=== PATIENT | female | born 1940 | race Two or more races ===

== ENCOUNTER 2023-08-24 10:24 | Inpatient (IN) | payer OTHER ==
[~2023-08-24] VITALS: Ht 165.1 cm; Wt 169.6 kg
[2023-08-24] MEDS ORDERED: PROVIGIL200 MG PO (10:35)
[2023-08-24] MEDS ORDERED: ADULT LOW DOSE81 M1 PO (10:35)
[2023-08-24] MEDS ORDERED: SYNTHROID75 MCG PO (10:35)
[2023-08-24] MEDS ORDERED: PROTONIX20 MG PO (10:36)
[2023-08-24] MEDS ORDERED: LIORESAL I2000 MCG/1 IT (10:36)
[2023-08-24] MEDS ORDERED: COZAAR25 MG PO (10:37)
[2023-08-24] MEDS ORDERED: NAMENDA10 MG PO (10:37)
[2023-08-24] MEDS ORDERED: RAZADYNE ER16 MG PO (10:37)
[2023-08-24] MEDS ORDERED: FEOSOL325 MG PO (10:37)
[2023-08-24] MEDS ORDERED: CRESTOR5 MG PO (10:38)
[2023-08-24] MEDS ORDERED: FOLIC ACID0.8 M1 (10:38)
[2023-08-24] MEDS ORDERED: VITAMIN D310 MCG/1 M (10:40)
[2023-08-24] MEDS ORDERED: POLYETHYLENE GLYCOL 3350 17 GM BLIST.PACK PO SCH (15:52)
[2023-08-24] MEDS ORDERED: BISACODYL 5 MG TABLET.EC PO SCH (15:52)
[2023-08-24] MEDS ORDERED: 0.9 % SODIUM CHLORIDE 1,000 ML IV SCH (16:00)
[2023-08-24 16:58] LABS: HEMATOCRIT 39.3 % (36.0-45.00); HEMOGLOBIN 13.1 g/dL (12.0-15.00); MEAN CELL VOLUME 93.8 fL (80.00-100.00); MEAN CORPUSCULAR HEMOGLOBIN 31.2 pg (27.00-32.0); MEAN CORPUSCULAR HGB CONC 33.3 g/dl (32.0-36.0); PLATELET COUNT 234 K/uL (150-450); RED BLOOD COUNT 4.19 M/uL (4.00-6.00); RED CELL DISTRIBUTION WIDTH 14.4 % (11.5-14.5)
[2023-08-24 17:18] LABS: INR 0.98; PROTHROMBIN TIME 10.3 SECONDS (9.0-11.5)
[2023-08-24 17:22] LABS: ALBUMIN 3.1 gm/dL (3.4-5.0); BILIRUBIN TOTAL 0.31 mg/dL (0.3-1.2); CALCIUM 9.1 mg/dL (8.5-10.1); CREATININE SERUM 0.55 mg/dL (0.55-1.02); GFR 105.82; GLOBULINA 2.8 G/DL (2.4-3.5); POTASSIUM 4.17 mEq/L (3.5-5.1); TOTAL PROTEIN 5.9 gm/dL (6.4-8.2)
[2023-08-24 19:09] LABS: URINE APPEARANCE Turbid; URINE BILIRRUBIN Negative (NEGATIVE); URINE BLOOD Small; URINE COLOR Yellow; URINE GLUCOSE Negative (NEGATIVE); URINE LEUKOCYTE Large; URINE NITRATE Positive; URINE PROTEIN 30 (NEGATIVE); URINE UROBILINOGEN 0.2 E.U./dl
[2023-08-24 19:13] LABS: URINE EPITHELIAL CELLS 7.1 uL (0.0-38.8); URINE RBC 35.9 uL (0.0-20.8)
[2023-08-24 19:14] LABS: URINE BACTERIA > 9821.5 uL (0.0-1933); URINE WBC > 5548.3 uL (0.0-23.2)
[2023-08-24] MEDS ORDERED: ENALAPRILAT DIHYDRATE 1.25 MG/ML VIAL IV PRN (19:45)
[2023-08-24] MEDS ORDERED: POLYETHYLENE GLYCOL 3350 238 GM POWDER PO ONE (20:00)
[2023-08-25] MEDS ORDERED: SILVER SULFADIAZINE 50 GM,ZINC OXIDE 30 GM,NYSTATIN 15 GM TOP SCH (09:01)
[2023-08-25] MEDS ORDERED: CEFTRIAXONE SODIUM 2,000 MG VIAL IV STA (13:53)
[2023-08-25] MEDS ORDERED: LEVALBUTEROL HCL 0.63 MG/3 ML SOLUTION IH STA (14:07)
[2023-08-25 14:57] LABS: ABG PH 7.418 (7.35-7.45); ABG PO2 78.5 mmHg (80-100); ABG pCO2 36.9 mmHg (35-45); BASE EXCESS -0.8 mmol/l; BICARBONATE 23.3 mmol/l (23-25); SaO2 95.7 %; Tco2 24.4 mmol/l
[2023-08-25 14:58] LABS: allen test SATISFACTORY; o2 21 %; puncture site RADIAL RIGHT
[2023-08-25] MEDS ORDERED: LEVALBUTEROL HCL 0.63 MG/3 ML SOLUTION IH SCH ×2 (17:00→18:55)
[2023-08-25] MEDS ORDERED: MORPHINE SULFATE 4 MG/ML CARTRIDGE IV PRN (18:00)
[2023-08-25] MEDS ORDERED: RINGERS SOLUTION,LACTATED 1,000 ML IV SCH (18:00)
[2023-08-25] MEDS ORDERED: DEXTROSE 50 % IN WATER 0.5 G/ML DISP.SYRIN IV PRN (18:00)
[2023-08-25] MEDS ORDERED: ONDANSETRON HCL 2 MG/ML VIAL IV PRN (18:00)
[2023-08-25] MEDS ORDERED: SUGAMMADEX SODIUM 200 MG/2 ML VIAL IV ONE (18:05)
[2023-08-25] MEDS ORDERED: BETHANECHOL CHLORIDE 25 MG TABLET PO SCH (18:53)
[2023-08-25] MEDS ORDERED: ACETAMINOPHEN 500 MG GEL..CAP PO SCH (20:00)
[2023-08-25] MEDS ORDERED: FAMOTIDINE/PF 20 MG/2 ML VIAL IV PUSH SCH (21:00)
[2023-08-25] MEDS ORDERED: CELECOXIB 200 MG CAPSULE PO SCH (21:00)
[2023-08-25] MEDS ORDERED: BUDESONIDE 0.25 MG/2 ML AMPUL.NEB IH SCH (21:00)
[2023-08-25] MEDS ORDERED: IPRATROPIUM BROMIDE 0.5 MG/2.5 ML AMPUL.NEB IH SCH (21:00)
[2023-08-25] MEDS ORDERED: TAMSULOSIN HCL 0.4 MG CAP PO SCH (21:00)
[2023-08-25] MEDS ORDERED: BACLOFEN 10 MG TABLET PO SCH (21:00)
[2023-08-25] MEDS ORDERED: MONTELUKAST SODIUM 10 MG TABLET PO SCH (21:00)
[2023-08-25] MEDS ORDERED: MEMANTINE HCL 10 MG TABLET PO SCH (21:00)
[2023-08-25 21:11] LABS: HEMATOCRIT 37.7 % (36.0-45.00); HEMOGLOBIN 12.3 g/dL (12.0-15.00); MEAN CELL VOLUME 92.7 fL (80.00-100.00); MEAN CORPUSCULAR HEMOGLOBIN 30.2 pg (27.00-32.0); MEAN CORPUSCULAR HGB CONC 32.6 g/dl (32.0-36.0); PLATELET COUNT 237 K/uL (150-450); RED BLOOD COUNT 4.07 M/uL (4.00-6.00); RED CELL DISTRIBUTION WIDTH 14.6 % (11.5-14.5)
[2023-08-25 21:29] LABS: CALCIUM 8.6 mg/dL (8.5-10.1); CREATININE SERUM 0.56 mg/dL (0.55-1.02); GFR 103.64; MAGNESIUM 1.7 mg/dL (1.8-2.4); PHOSPHOROUS 2.9 mg/dL (2.5-4.9); POTASSIUM 3.91 mEq/L (3.5-5.1)
[2023-08-26] MEDS ORDERED: GABAPENTIN 300 MG CAPSULE PO SCH (01:00)
[2023-08-26] MEDS ORDERED: PATIENTS OWN MEDICATION (MEDICAMENTO EN PISO) PO SCH ×5 (06:00→17:00)
[2023-08-26] MEDS ORDERED: PIPERACILLIN/TAZOBACTAM SODIUM 3.375 GM in 0.9 % SODIUM CHLORIDE 100 ML IV SCH (06:00)
[2023-08-26] MEDS ORDERED: SUCRALFATE 1 G TABLET PO SCH (07:00)
[2023-08-26] MEDS ORDERED: PIPERACILLIN/TAZOBACTAM SODIUM 3.375 GM VIAL IV ONE (07:26)
[2023-08-26 07:39] LABS: HEMATOCRIT 36.1 % (36.0-45.00); HEMOGLOBIN 11.9 g/dL (12.0-15.00); MEAN CELL VOLUME 92.9 fL (80.00-100.00); MEAN CORPUSCULAR HEMOGLOBIN 30.7 pg (27.00-32.0); MEAN CORPUSCULAR HGB CONC 33.1 g/dl (32.0-36.0); PLATELET COUNT 216 K/uL (150-450); RED BLOOD COUNT 3.89 M/uL (4.00-6.00); RED CELL DISTRIBUTION WIDTH 14.3 % (11.5-14.5)
[2023-08-26 08:19] LABS: ALBUMIN 2.7 gm/dL (3.4-5.0); CALCIUM 8.4 mg/dL (8.5-10.1); CREATININE SERUM 0.61 mg/dL (0.55-1.02); GFR 93.9; MAGNESIUM 1.9 mg/dL (1.8-2.4); PHOSPHOROUS 2.6 mg/dL (2.5-4.9); POTASSIUM 3.68 mEq/L (3.5-5.1)
[2023-08-26] MEDS ORDERED: BUDESONIDE 0.5 MG/2 ML AMPUL.NEB IH SCH (09:00)
[2023-08-26] MEDS ORDERED: LOSARTAN POTASSIUM 25 MG TABLET PO SCH (09:00)
[2023-08-26] MEDS ORDERED: HYOSCYAMINE SULFATE 0.125 MG TAB.SUBL SL SCH (09:00)
[2023-08-26] MEDS ORDERED: LEVALBUTEROL HCL 0.63 MG/3 ML SOLUTION IH ONE (09:18)
[2023-08-26] MEDS ORDERED: SUGAMMADEX SODIUM 200 MG/2 ML VIAL IV ONE (13:00)
[2023-08-26] MEDS ORDERED: EMOLLIENT COMBINATION NO.92 2.5 OZ BOTTLE TOP SCH (13:45)
[2023-08-26] MEDS ORDERED: POLYETHYLENE GLYCOL 3350 17 GM BLIST.PACK PO SCH (17:00)
[2023-08-26] MEDS ORDERED: ENOXAPARIN SODIUM 40 MG/0.4 ML SYRINGE SUBCUTANEO SCH (17:00)
[2023-08-27 08:15] LABS: HEMATOCRIT 32.3 % (36.0-45.00); HEMOGLOBIN 10.6 g/dL (12.0-15.00); MEAN CELL VOLUME 93.9 fL (80.00-100.00); PLATELET COUNT 175 K/uL (150-450); RED BLOOD COUNT 3.44 M/uL (4.00-6.00); RED CELL DISTRIBUTION WIDTH 14.5 % (11.5-14.5)
[2023-08-27] MEDS ORDERED: ENOXAPARIN SODIUM 40 MG/0.4 ML SYRINGE SUBCUTANEO SCH (09:00)
[2023-08-27 09:04] LABS: CALCIUM 8.2 mg/dL (8.5-10.1); CREATININE SERUM 0.7 mg/dL (0.55-1.02); GFR 80.11; MAGNESIUM 2.2 mg/dL (1.8-2.4); PHOSPHOROUS 2.7 mg/dL (2.5-4.9); POTASSIUM 3.61 mEq/L (3.5-5.1)
[2023-08-27] MEDS ORDERED: CLONIDINE HCL 0.1 MG TABLET PO STA (12:02)
[2023-08-27] MEDS ORDERED: SOD FERRIC GLUC COMPLX/SUCROSE 62.5 MG in 0.9 % SODIUM CHLORIDE 50 ML IV SCH (12:10)
[2023-08-27] MEDS ORDERED: Cyanocobalamin/Mecobalamin 1 TAB.SL SL SCH (12:10)
[2023-08-28 12:34] LABS: ABG PH 7.364 (7.35-7.45); ABG PO2 60.1 mmHg (80-100); ABG pCO2 36.5 mmHg (35-45); BASE EXCESS -4.3 mmol/l; BICARBONATE 20.4 mmol/l (23-25); SaO2 89.3 %; Tco2 21.5 mmol/l
[2023-08-28 12:35] LABS: allen test SATISFACTORY; o2 21 %; puncture site RADIAL RIGHT
[2023-08-29 09:21] LABS: HEMATOCRIT 35.7 % (36.0-45.00); HEMOGLOBIN 11.5 g/dL (12.0-15.00); MEAN CELL VOLUME 92.8 fL (80.00-100.00); MEAN CORPUSCULAR HEMOGLOBIN 29.9 pg (27.00-32.0); MEAN CORPUSCULAR HGB CONC 32.2 g/dl (32.0-36.0); PLATELET COUNT 195 K/uL (150-450); RED BLOOD COUNT 3.85 M/uL (4.00-6.00); RED CELL DISTRIBUTION WIDTH 14.7 % (11.5-14.5)
[2023-08-29 09:23] LABS: CALCIUM 8.6 mg/dL (8.5-10.1); CREATININE SERUM 0.75 mg/dL (0.55-1.02); GFR 73.98; MAGNESIUM 2.1 mg/dL (1.8-2.4); PHOSPHOROUS 2.1 mg/dL (2.5-4.9)
[2023-08-29 09:28] LABS: POTASSIUM 3.01 mEq/L (3.5-5.1)
[2023-08-29] MEDS ORDERED: VANCOMYCIN HCL 1,000 MG VIAL IV SCH (10:44)
[2023-08-29] MEDS ORDERED: POTASSIUM PHOS,M-BASIC-D-BASIC 3 MM/ML VIAL IV NR (10:45)
[2023-08-29] MEDS ORDERED: POTASSIUM CHLORIDE 20MEQ/100ML H2O PB IV ONE (10:51)
[2023-08-29] MEDS ORDERED: MEROPENEM 1,000 MG VIAL IV SCH (13:00)
[2023-08-29 16:42] LABS: HEMATOCRIT 38.9 % (36.0-45.00); HEMOGLOBIN 12.7 g/dL (12.0-15.00); MEAN CORPUSCULAR HGB CONC 32.6 g/dl (32.0-36.0); PLATELET COUNT 225 K/uL (150-450); RED BLOOD COUNT 4.22 M/uL (4.00-6.00); RED CELL DISTRIBUTION WIDTH 14.9 % (11.5-14.5)
[2023-08-29] MEDS ORDERED: METRONIDAZOLE/SODIUM CHLORIDE 100 ML IV SCH (17:00)
[2023-08-29 17:05] LABS: CALCIUM 8.8 mg/dL (8.5-10.1); CREATININE SERUM 0.63 mg/dL (0.55-1.02); GFR 90.47; POTASSIUM 3.31 mEq/L (3.5-5.1)
[2023-08-29 17:41] LABS: ABG PH 7.366 (7.35-7.45); ABG PO2 83.9 mmHg (80-100); ABG pCO2 28.2 mmHg (35-45); BASE EXCESS -7.9 mmol/l; BICARBONATE 15.8 mmol/l (23-25); SaO2 95.5 %; Tco2 16.7 mmol/l
[2023-08-29 17:42] LABS: allen test SATISFACTORY; o2 100 %; puncture site RADIAL RIGHT
[2023-08-29 17:44] LABS: URINE APPEARANCE Cloudy; URINE BILIRRUBIN Negative (NEGATIVE); URINE BLOOD Negative; URINE COLOR Dark Yellow; URINE GLUCOSE Negative (NEGATIVE); URINE LEUKOCYTE Negative; URINE NITRATE Negative
[2023-08-29 17:48] LABS: URINE BACTERIA 41.5 uL (0.0-1933); URINE EPITHELIAL CELLS 67.2 uL (0.0-38.8); URINE RBC 31.7 uL (0.0-20.8); URINE WBC 66.7 uL (0.0-23.2)
[2023-08-29 18:37] LABS: MAGNESIUM 2.2 mg/dL (1.8-2.4); PHOSPHOROUS 3.5 mg/dL (2.5-4.9)
[2023-08-29] MEDS ORDERED: LINEZOLID IN DEXTROSE 5% 300 ML IV SCH (18:57)
[2023-08-29 19:51] LABS: URINE PROTEIN 100 (NEGATIVE)
[2023-08-29 21:39] LABS: CKMB 3.8 NG/ML (0.5-3.6)
[2023-08-30 07:36] LABS: CKMB 3.6 NG/ML (0.5-3.6)
[2023-08-30 07:38] LABS: HEMATOCRIT 31.9 % (36.0-45.00); HEMOGLOBIN 10.6 g/dL (12.0-15.00); MEAN CELL VOLUME 93.2 fL (80.00-100.00); MEAN CORPUSCULAR HEMOGLOBIN 31.1 pg (27.00-32.0); MEAN CORPUSCULAR HGB CONC 33.4 g/dl (32.0-36.0); PLATELET COUNT 189 K/uL (150-450); RED BLOOD COUNT 3.43 M/uL (4.00-6.00); RED CELL DISTRIBUTION WIDTH 14.7 % (11.5-14.5)
[2023-08-30 07:44] LABS: CALCIUM 8.8 mg/dL (8.5-10.1); CREATININE SERUM 0.51 mg/dL (0.55-1.02); GFR 115.45; POTASSIUM 3.32 mEq/L (3.5-5.1)
[2023-08-30 07:54] LABS: PHOSPHOROUS 1.9 mg/dL (2.5-4.9)
[2023-08-30 08:55] LABS: ABG PH 7.388 (7.35-7.45); ABG PO2 67.9 mmHg (80-100); ABG pCO2 29.6 mmHg (35-45)
[2023-08-30 08:56] LABS: BASE EXCESS -6.1 mmol/l; BICARBONATE 17.4 mmol/l (23-25); SaO2 92.7 %; Tco2 18.3 mmol/l; allen test SATISFACTORY; o2 100 %; puncture site RADIAL RIGHT
[2023-08-30] MEDS ORDERED: POTASSIUM CHLORIDE 20MEQ/100ML H2O PB IV ONE (09:00)
[2023-08-30] MEDS ORDERED: POTASSIUM PHOS,M-BASIC-D-BASIC 3 MM/ML VIAL IV NR (09:00)
[2023-08-30] MEDS ORDERED: cloNIDine 0.2 MG/24 H PATCH.TDWK TD SCH (09:38)
[2023-08-30] MEDS ORDERED: FUROsemide 20 MG/2 ML VIAL IV STA (10:25)
[2023-08-30] MEDS ORDERED: NITROGLYCERIN IN 5 % DEXTROSE 250 ML IV SCH (11:45)
[2023-08-30] MEDS ORDERED: AA 4.25%/CAL/LYTES/DEXT 5% 1,000 ML PERIFERAL SCH (17:00)
[2023-08-30] MEDS ORDERED: FUROsemide 20 MG/2 ML VIAL IV SCH (17:00)
[2023-08-31 06:31] LABS: HEMATOCRIT 35.6 % (36.0-45.00); HEMOGLOBIN 12.1 g/dL (12.0-15.00); MEAN CELL VOLUME 89.2 fL (80.00-100.00); MEAN CORPUSCULAR HEMOGLOBIN 30.2 pg (27.00-32.0); MEAN CORPUSCULAR HGB CONC 33.8 g/dl (32.0-36.0); PLATELET COUNT 223 K/uL (150-450); RED BLOOD COUNT 3.99 M/uL (4.00-6.00); RED CELL DISTRIBUTION WIDTH 15.6 % (11.5-14.5)
[2023-08-31 06:39] LABS: CALCIUM 8.6 mg/dL (8.5-10.1); CREATININE SERUM 1.15 mg/dL (0.55-1.02); GFR 45.17; MAGNESIUM 2.3 mg/dL (1.8-2.4); PHOSPHOROUS 2.8 mg/dL (2.5-4.9); POTASSIUM 5.22 mEq/L (3.5-5.1)
[2023-08-31 08:21] LABS: ABG PH 7.448 (7.35-7.45); ABG pCO2 35.3 mmHg (35-45)
[2023-08-31 08:22] LABS: ABG PO2 54.1 mmHg (80-100); BASE EXCESS 0.4 mmol/l; BICARBONATE 23.9 mmol/l (23-25); SaO2 89.3 %; allen test SATISFACTORY; o2 100 %; puncture site RADIAL LEFT
[2023-08-31] MEDS ORDERED: hydrALAZINE HCL 25 MG TABLET PO SCH (09:00)
[2023-08-31] MEDS ORDERED: FLUCONAZOLE IN NACL,ISO-OSM 400 MG/200 ML PIGGYBAG IV STA (10:56)
[2023-08-31] MEDS ORDERED: PHENYLEPHRINE HCL 20 MG in 0.9 % SODIUM CHLORIDE 250 ML IV SCH (12:45)
[2023-08-31] MEDS ORDERED: ANIDULAFUNGIN 100 MG VIAL IV ONE (12:45)
[2023-08-31] MEDS ORDERED: DOPamine HCL IN DEXTROSE 5 % 250 ML IV SCH (12:45)
[2023-08-31] MEDS ORDERED: NOREPINEPHRINE BITARTRATE 8 MG in DEXTROSE 5 % IN WATER 250 ML IV SCH (12:45)
[2023-08-31] MEDS ORDERED: MEROPENEM 1,000 MG VIAL IV SCH (21:00)
[2023-08-31] MEDS ORDERED: FUROsemide 20 MG/2 ML VIAL IV SCH (21:00)
[2023-09-01] MEDS ORDERED: ANIDULAFUNGIN 100 MG VIAL IV SCH (09:00)
[2023-09-01] MEDS ORDERED: FLUCONAZOLE IN NACL,ISO-OSM 100 ML IV SCH (09:00)
== END 2023-08-31 13:06 | disposition expired | DRG 329 ==
LOC: ER 10:24 → EDBD 10:26 → SURG 16:42 → SURH 16:42 → O/R 08-25 22:26 → SURH 08-26 13:25 → ICU 08-29 18:59
PROVIDERS: Internal Medicine; Internal Medicine Geriatric Medicine; ADMIT Surgery; ATTEND Surgery
PROC: 07BB4ZZ Excision of Mesenteric Lymphatic, Percutaneous Endoscopic Approach (ICD-10-PCS; 2023-08-25)
PROC: 0DTF4ZZ Resection of Right Large Intestine, Percutaneous Endoscopic Approach (ICD-10-PCS; principal; 2023-08-25 15:00)
PROC: 4A12X4Z Monitoring of Cardiac Electrical Activity, External Approach (ICD-10-PCS; 2023-08-27)
PROC: 02HV33Z Insertion of Infusion Device into Superior Vena Cava, Percutaneous Approach (ICD-10-PCS; 2023-08-29)
PROC: B24BZZZ Ultrasonography of Heart with Aorta (ICD-10-PCS; 2023-08-30)
PROC: 0BH17EZ Insertion of Endotracheal Airway into Trachea, Via Natural or Artificial Opening (ICD-10-PCS; 2023-08-31)
PROC: 5A1935Z Respiratory Ventilation, Less than 24 Consecutive Hours (ICD-10-PCS; 2023-08-31)
DX: C18.0 Malignant neoplasm of cecum (principal); A41.9 Sepsis, unspecified organism; J69.0 Pneumonitis due to inhalation of food and vomit; R65.21 Severe sepsis with septic shock; J96.00 Acute respiratory failure, unspecified whether with hypoxia or hypercapnia; I21.A1 Myocardial infarction type 2; N39.0 Urinary tract infection, site not specified; N17.9 Acute kidney failure, unspecified; C18.2 Malignant neoplasm of ascending colon; I46.9 Cardiac arrest, cause unspecified; R59.0 Localized enlarged lymph nodes; J44.9 Chronic obstructive pulmonary disease, unspecified; I10 Essential (primary) hypertension; G35 Multiple sclerosis; G47.33 Obstructive sleep apnea (adult) (pediatric); L89.152 Pressure ulcer of sacral region, stage 2; Z74.01 Bed confinement status; I27.20 Pulmonary hypertension, unspecified; E03.9 Hypothyroidism, unspecified